=== PATIENT | male | born 1985 ===

== ENCOUNTER 2017-07-18 02:55 | Emergency (ER) | payer SELFPAY ==
[2017-07-18 03:06] VITALS: O2SAT 97
[2017-07-18] MEDS ORDERED: Tetanus/Diphtheria Toxoids 0.5 ml Syringe IM ONE ×2 (04:15→04:21)
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
[2017-07-18 05:33] VITALS: BP 114/68; PULSE 112; RESP 20; TEMP 98.4
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
== END 2017-07-18 06:18 | disposition home or self-care (01) ==
LOC: C.ER 02:55
DX: S02.2XXA Fracture of nasal bones, initial encounter for closed fracture (principal); S00.83XA Contusion of other part of head, initial encounter; Y08.89XA Assault by other specified means, initial encounter; Y92.89 Other specified places as the place of occurrence of the external cause; Z23 Encounter for immunization